=== PATIENT | female | born 2000 | race Caucasian/White ===

== ENCOUNTER 2020-05-13 07:57 | Emergency (ER) | payer OTHER ==
[2020-05-13 08:04] VITALS: BMI 19.8
--- NOTE | 2020-05-13 08:22 | PDOC ---
Attending Attestation - Resident Resident Name: Tiffanie Davila - HPI HPI: 05/13/20 12:23 PT presents to the ED complaining of pelvic cramping and vaginal bleeding that started last night. Six weeks by dates with positive home test. Denies nausea, vomiting or fever. Pain is mild-moderate in severity, intermittent and diffuse across her lower abdomen. Patient denies heavy vaginal bleeding or passing clots. - Physicial Exam PE: 05/13/20 12:25 Agree with resident exam. PAtient is alert and oriented x 3 and in no acute distress. Abdomen is soft, non tender, non distended without guarding or rebound. - Medical Decision Making 05/13/20 12:26 Pt presents to the ED complaining of vaginal spotting and pelvic cramping. Differential included ectopic , spontaneous , threatened . official US shows IUP that is within the lower uterine segment and is suspicious for impending miscarriage. Also shows large R adnexal cyst, normal R ovarian flow. Patient is only experiencing minimal pain. Case discussed with Dorina, who is not concerned for torsion and recommends discharge home with OB follow up. 05/13/20 12:30 Discharge - Discharge Information Problems reviewed: Yes Clinical Impression/Diagnosis: Vaginal bleeding affecting early Condition: Good Disposition: HOME - Follow up/Referral - Patient Discharge Instructions Patient Printed Discharge Instructions: DI for Vaginal Bleeding During Additional Instructions: You were seen in the ER today for bleeding. There is a chance you may have a miscarriage. Please follow up with your ObGyn tomorrow. Please call them about this visit and the ultrasound results. The bleeding may continue and you may pass clots. You will also experience cramping. You can take Tylenol for the cramping. Come back to the ER if you have worsening cramping despite taking the medications, you have heavy bleeding, you have bleeding for over 1 week or if any new or concerning symptom develops. Thank you - Post Discharge Activity Work/Back to School Note: Back to Work
--- NOTE | 2020-05-13 08:34 | PDOC ---
History of Present Illness - General Chief Complaint: Vaginal Bleeding Stated Complaint: VAGINAL BLEED Time Seen by Provider: 05/13/20 08:12 History Source: Patient Exam Limitations: No Limitations - History of Present Illness Initial Comments: 05/13/20 09:47 19y F G2A1 at approximately 6 weeks gestation based on LMP presenting to the ER for vaginal bleeding and cramping. Pt states the bleeding started yesterday associated with cramping. She has used a total of 3 pads between yesterday and today, no clots. 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 Denies n/v/d, injury, chest pain, sob, fever, chills. Saw her OB yesterday prior to the bleeding for ultrasound without any significant findings. Had an elective during the previous . PMD: OB: [facility] PMH: none PSH: none Allergies: nkda Social: denies Past History - Medical History Allergies/Adverse Reactions: Allergies Allergy/AdvReac Type Severity Reaction Status Date / Time No Known Allergies Allergy Verified 05/13/20 07:59 COPD: No - Reproductive History Is Patient Now?: Yes (#): 2 Para: 0 Cervical CA: No Dysfunctional Uterine Bleeding: No Ectopic : No Endometrial CA: No Polycystic Ovaries: No Therapeutic (s) & number: Yes (1) Tubal Ligation: No - Psycho-Social/Smoking History Smoking History: Never smoked Have you smoked in the past 12 months: No - Substance Abuse Hx (Audit-C & DAST Scrn) How often the patient has a drink containing alcohol: Never Score: In Men: 4 or > Positive; In Women: 3 or > Positive: 0 Screen Result (Pos requires Nsg. Audit-10AR): Negative In the last yr the pt used illegal drug/Rx for NonMed reason: No Score: Yes response is considered Positive: 0 Screen Result (Positive result requires Nsg. DAST-10): Negative Review of Systems - Review of Systems Constitutional: No: Symptoms Reported HEENTM: No: Symptoms Reported Respiratory: No: Symptoms reported Cardiac (ROS): No: Symptoms Reported ABD/GI: Yes: See HPI : Yes: See HPI Musculoskeletal: No: Symptoms Reported Integumentary: No: Symptoms Reported Neurological: No: Symptoms reported *Physical Exam - Vital Signs Last Vital Signs Temp Pulse Resp BP Pulse Ox 98.1 F 96 H 14 98/64 100 05/13/20 07:59 05/13/20 07:59 05/13/20 07:59 05/13/20 07:59 05/13/20 07:59 - Physical Exam General Appearance: Yes: Nourished, Appropriately Dressed. No: Apparent Distress HEENT: positive: EOMI, LUCILLE Neck: positive: Trachea midline, Supple Respiratory/Chest: positive: Lungs Clear, Normal Breath Sounds. negative: Decreased Breath Sounds, Crackles, Rales, Rhonchi, Stridor, Wheezing Cardiovascular: positive: Regular Rhythm, Regular Rate Vascular Pulses: Dorsalis-Pedis (R): 2+, Doralis-Pedis (L): 2+ Female Pelvic Exam: positive: cervical os closed, vaginal bleeding (scant blood in vault). negative: CMT Gastrointestinal/Abdominal: positive: Normal Bowel Sounds, Soft. negative: Tender Musculoskeletal: negative: CVA Tenderness Extremity: positive: Normal Capillary Refill. negative: Pedal Edema Integumentary: positive: Normal Color, Dry, Warm Neurologic: positive: clinical nurse occupational medicine II-XII NML intact, Fully Oriented, Alert, Normal Mood/Affect, Normal Response, Motor Strength 5/ ED Treatment Course - LABORATORY CBC & Chemistry Diagram: 05/13/20 08:35 05/13/20 08:35 - RADIOLOGY Radiology Studies Ordered: Category Date Time Status TRANSVAGINAL ULTRASOUND US [US] Stat Ultrasound 05/13/20 08:12 Ordered Medical Decision Making - Medical Decision Making 05/13/20 08:33 19y F G2A1 with no significant PMH total 3 pads. started last night. worse at night, better now. vitals wnl. exam with scant blood, closed os. -labs, bhcg, tvus labs wnl. bhcg level as listed. tvus with iup low in uterus, impending fhr 160s. r adnexal cyst. 05/13/20 11:[address] Cam; no intervention at this time given FHR. low suspicion for torsion; likely luteal cyst. 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 results discussed with patient. dc instructions and return precautions provided. 05/13/20 18:07 Discharge - Discharge Information Problems reviewed: Yes Clinical Impression/Diagnosis: Vaginal bleeding affecting early Condition: Good Disposition: HOME - Admission No - Follow up/Referral - Patient Discharge Instructions Patient Printed Discharge Instructions: DI for Vaginal Bleeding During Additional Instructions: You were seen in the ER today for bleeding. There is a chance you may have a miscarriage. Please follow up with your ObGyn tomorrow. Please call them about this visit and the ultrasound results. The bleeding may continue and you may pass clots. You will also experience cramping. You can take Tylenol for the cramping. Come back to the ER if you have worsening cramping despite taking the medications, you have heavy bleeding, you have bleeding for over 1 week or if any new or concerning symptom develops. Thank you - Post Discharge Activity Work/Back to School Note: Back to Work
[2020-05-13 09:08] LABS: BASO % 0.3 % (0-2.0); EOS % 1.2 % (0-4.5); HEMATOCRIT 37.4 % (32.4-45.2); HEMOGLOBIN 13.1 GM/dL (10.7-15.3); LYMPH % 17.4 % (8-40); MCH 30.1 pg (25.7-33.7); MCHC 35.1 g/dl (32.0-36.0); MEAN CELL VOLUME 85.7 fl (80-96); MEAN PLT VOLUME 7.9 fl (7.5-11.1); MONO % 6.9 % (3.8-10.2); NEUT % 74.2 % (42.8-82.8); PLATELET COUNT 220 K/MM3 (134-434); RBC 4.37 M/mm3 (3.60-5.2); RDW 13.2 % (11.6-15.6); WHITE BLOOD COUNT 8.8 K/mm3 (4.0-10.0)
[2020-05-13 09:18] LABS: EPI CELLS 31 /uL (0-25.1); HYALINE CASTS 1 /uL (0-3.1); URINE APPEARANCE CLEAR; URINE BACTERIA 722 /uL (0-1359); URINE BILIRUBIN NEGATIVE (NEGATIVE); URINE COLOR YELLOW; URINE GLUCOSE (UA) NEGATIVE (NEGATIVE); URINE KETONE NEGATIVE (NEGATIVE); URINE LEUK ESTERASE 1+ (NEGATIVE); URINE NITRITE NEGATIVE (NEGATIVE); URINE PROTEIN NEGATIVE (NEGATIVE); URINE RBC 26 /uL (0-23.9); URINE UROBILINOGEN 0.2 mg/dL (0.2-1.0); URINE WBC 92 /uL (0-25.8)
[2020-05-13] MEDS ORDERED: ACETAMINOPHEN 500 MG TABLET (FP) PO ONE (09:30)
[2020-05-13] MEDS ORDERED: ACETAMINOPHEN 325 MG TABLET (FP) ONE (09:36)
[2020-05-13 09:57] LABS: ALBUMIN 4.2 g/dl (3.4-5.0); BILIRUBIN,TOTAL 0.5 mg/dL (0.2-1); BLOOD UREA NITROGEN 12.5 mg/dL (7-18); CALCIUM 8.9 mg/dL (8.5-10.1); CREATININE 0.6 mg/dL (0.55-1.3); POTASSIUM 3.9 mmol/L (3.5-5.1); TOT PROT 7.8 g/dl (6.4-8.2)
[2020-05-13] MEDS ORDERED: RHO(D) IMMUNE GLOBULIN 1,500 UNIT DISP.SYRIN IM ONE (11:48)
[2020-05-13 12:44] VITALS: BP 99/68; PULSE 88; TEMP 98.4
== END 2020-05-13 12:45 | disposition home or self-care (01) ==
LOC: JER 07:57
PROC: 3E023GC Introduction of Other Therapeutic Substance into Muscle, Percutaneous Approach (ICD-10-PCS; principal; 2020-05-13)
DX: O26.851 Spotting complicating pregnancy, first trimester (principal)
CPT/HCPCS: 36415; 76830-TC; 80053; 81003; 84702; 85025; 86850; 86900; 86901; 86999; 99284-25; J1561